=== PATIENT | female | born 1995 ===

== ENCOUNTER 2017-12-04 20:35 | Emergency (ER) | payer MEDICAID ==
[~2017-12-04] VITALS: Ht 170.2 cm; Wt 100.6 kg
[2017-12-04 20:38] VITALS: BP 123/79
[2017-12-04] MEDS ORDERED: ACETAMINOPHEN 500 MG TABLET PO ONE (21:00)
[2017-12-04] MEDS ORDERED: ACETAMINOPHEN 500 MG TABLET ONE (21:05)
== END 2017-12-04 21:16 | disposition home or self-care (01) ==
LOC: ED 21:10
DX: O9A.211 Injury, poisoning and certain other consequences of external causes complicating pregnancy, first trimester (principal); S39.011A Strain of muscle, fascia and tendon of abdomen, initial encounter; O99.211 Obesity complicating pregnancy, first trimester; Z3A.09 9 weeks gestation of pregnancy; X58.XXXA Exposure to other specified factors, initial encounter; Y93.89 Activity, other specified; Y92.89 Other specified places as the place of occurrence of the external cause; Y99.8 Other external cause status
CPT/HCPCS: 99282

== ENCOUNTER 2018-05-08 18:33 | Emergency (ER) | payer MEDICAID ==
[~2018-05-08] VITALS: Ht 170.2 cm; Wt 103.3 kg
[2018-05-08 18:46] VITALS: BP 110/76
[2018-05-08 19:51] LABS: HCG UR SG 1.008 (1.003-1.030); MICROSCOPIC AUTO
[2018-05-08 19:53] LABS: CULTURE INDICATED? YES
== END 2018-05-08 21:06 | disposition home or self-care (01) ==
LOC: ED 21:00
DX: R11.0 Nausea (principal)
CPT/HCPCS: 81001; 81025; 87086; 99284